=== PATIENT | female | born 1985 | race Caucasian/White ===

== ENCOUNTER 2022-10-09 02:36 | Inpatient (IN) | payer SELFPAY ==
[2022-10-09] MEDS ORDERED: Sodium Chloride 0.9% 20 ML SDV IV PRN (02:59)
[2022-10-09] MEDS ORDERED: Lidocaine 1% 50 ML MDV INJECT PRN (02:59)
[2022-10-09] MEDS ORDERED: Sodium Chloride 0.9% 2.5 ML Syringe FLUSH PRN (02:59)
[2022-10-09] MEDS ORDERED: Water For Irrigation,Sterile 1,000 ML Container IRR PRN (02:59)
[2022-10-09] MEDS ORDERED: Carboprost Tromethamine 250 MCG/1 mL Vial IM PRN (02:59)
[2022-10-09] MEDS ORDERED: Tranexamic Acid IN NACL,ISO-OS 1,000 MG in Premix Bag 1 BAG IV PRN ×2 (02:59)
[2022-10-09] MEDS ORDERED: Ondansetron 4 MG/2 ML SDV IVPUSH PRN (02:59)
[2022-10-09] MEDS ORDERED: Sodium Chloride 0.9% 10 ML Syringe FLUSH PRN (02:59)
[2022-10-09] MEDS ORDERED: Misoprostol 200 MCG Tab PO PRN (02:59)
[2022-10-09] MEDS ORDERED: Methylergonovine 0.2 MG/1 ML Amp IM PRN (02:59)
[2022-10-09] MEDS ORDERED: Oxytocin/0.9 % Sodium Chloride 30 UNIT/500 ML BAG IV SCH (03:00)
[2022-10-09] MEDS ORDERED: Lactated Ringers 1,000 ML IV SCH (03:00)
[2022-10-09] MEDS ORDERED: VANCOMYCIN IV ONE (03:15)
[2022-10-09] MEDS ORDERED: SODIUM CHLORIDE 0.9% IV ONE (03:15)
[2022-10-09] MEDS ORDERED: Vancomycin 1 GM SDV ONE ×2 (03:19→03:22)
[2022-10-09] MEDS ORDERED: Sodium Chloride 0.9% 250 ML ONE (03:22)
[2022-10-09 03:46] LABS: HEMATOCRIT 38.6 % (36.0-46.0); HEMOGLOBIN 13.3 g/dL (12.0-16.0); MEAN CORPUSCULAR HEMOGLOBIN 32.5 pg (27.0-32.0); MEAN CORPUSCULAR HGB CONC 34.5 g/dL (31.0-37.0); MEAN CORPUSCULAR VOLUME 94.4 fL (80.0-98.0); MEAN PLATELET VOLUME 10.9 fL (7.40-12.00); RED BLOOD CELL COUNT 4.09 M/uL (4.30-5.90); WHITE BLOOD CELL COUNT,WBC 19.46 K/uL (4.0-11.0)
[2022-10-09] MEDS ORDERED: Vancomycin 1.75 GM in Sodium Chloride 0.9% 500 ML IV ONE (04:00)
[2022-10-09] MEDS ORDERED: Lanolin 100% Cream 7 GM Tube TOP PRN (04:59)
[2022-10-09] MEDS ORDERED: Acetaminophen 500 MG Tab PO PRN (04:59)
[2022-10-09] MEDS ORDERED: Bisacodyl 10 MG Supp RECTAL PRN (04:59)
[2022-10-09] MEDS ORDERED: oxyCODONE 5 MG Tab PO PRN (04:59)
[2022-10-09] MEDS ORDERED: Benzocaine/Menthol 20%-0.5% Spray 78 GM Cannister TOP PRN (04:59)
[2022-10-09] MEDS ORDERED: Ibuprofen 400 MG Tab PO PRN (04:59)
[2022-10-09 05:05] LABS: PH,UMBILICAL ARTERIAL 7.256 (7.18-7.38)
[2022-10-09 05:07] LABS: PH,UMBILICAL VENOUS 7.269 (7.25-7.45)
[2022-10-09] MEDS: Witch Hazel Medicated Pads 40/Jar TOP PRN (06:11)
[2022-10-09] MEDS: Ibuprofen 800 MG Tab PO PRN ×2 (06:12→17:54)
[2022-10-09] MEDS: Acetaminophen 500 MG Tab PO PRN ×2 (06:13→12:13)
[2022-10-09 17:22] LABS: HEMATOCRIT 33.6 % (36.0-46.0); HEMOGLOBIN 11.3 g/dL (12.0-16.0)
[2022-10-09] MEDS: Docusate Sodium 100 MG Cap PO PRN (20:56)
[2022-10-10] MEDS: oxyCODONE 5 MG Tab PO PRN ×2 (00:26→08:42)
[2022-10-10] MEDS: Ibuprofen 800 MG Tab PO PRN (07:39)
[2022-10-10] MEDS: Docusate Sodium 100 MG Cap PO PRN ×2 (08:43→22:34)
[2022-10-10] MEDS: Witch Hazel Medicated Pads 40/Jar TOP PRN (23:51)
== END 2022-10-11 15:58 | disposition home or self-care (01) | DRG 807 ==
LOC: MW.OBCHECK 02:36 → MW.OB 02:38 → MW.OBCHECK 03:03 → OBSVTOIN 04:33 → MW.MS 15:43 → MW.OB 15:48
PROVIDERS: ADMIT Obstetrics & Gynecology; ATTEND Obstetrics & Gynecology
PROC: 10E0XZZ Delivery of Products of Conception, External Approach (ICD-10-PCS; principal; 2022-10-09)
PROC: 0W8NXZZ Division of Female Perineum, External Approach (ICD-10-PCS; 2022-10-09)
PROC: 3E033VJ Introduction of Other Hormone into Peripheral Vein, Percutaneous Approach (ICD-10-PCS; 2022-10-09)
DX: O42.02 Full-term premature rupture of membranes, onset of labor within 24 hours of rupture (principal); Z37.0 Single live birth; O99.824 Streptococcus B carrier state complicating childbirth; Z3A.38 38 weeks gestation of pregnancy; O70.1 Second degree perineal laceration during delivery
CPT/HCPCS: 36415; 59025; 59409; 82803; 85014; 85018; 85027; 86592; 86850; 86900; 86901; A9270-GY; J2001; J2590; J3370; J7050; J7120